=== PATIENT | male | born 1955 | race Caucasian/White ===

== ENCOUNTER → 2017-12-13 | Outpatient (CLI) | payer OTHER ==
[~2017-12-13] MED LIST: GADOBUTROL 10 ML VIAL IVP ONE
== END ==
LOC: FIMAGING 11:43
PROVIDERS: ATTEND Specialist
DX: N41.1 Chronic prostatitis (principal); R35.0 Frequency of micturition; R31.29 Other microscopic hematuria
CPT/HCPCS: A9585